=== PATIENT | female | born 1980 | race Caucasian/White ===

== ENCOUNTER 2017-11-07 10:16 | Emergency (ER) | payer SELFPAY ==
[~2017-11-07] VITALS: Ht 160 cm; Wt 66.7 kg
[~2017-11-07 10:16] MED LIST: AMOXICILLIN500 MG PO; AMOXIL500 MG PO; ANAPROX DS550 MG PO; AUGMENTIN 875875 MG PO; BENTYL10 MG PO; CEPHALEXIN500 M1 PO; CLEOCIN150 MG PO; COLACE100 MG; DARVOCET N 1001 TAB PO; DIFLUCAN150 MG PO; DULCOLAX5 MG PO; FLONASE0.05 MG/AC NS; HYDROCODONE BIT1 T11 PO; IBUPROFEN 30 M800 MG PO; MACROBID100 M1 PO; MONISTAT 72% VG; MOTRIN600 MG; NKHM; PENICILLIN VK500 MG PO; PERCOCET 325 MG1 TA2; PHENERGAN25 M1 PO; PRILOSEC20 MG PO; PROCARDIA10 MG PO; ROBITUSSIN AC 110 ML PO; SUDAFED60 MG PO; VICO75300 PO; VICODIN 5/500 505 MG PO; ZANTAC150 MG PO; ZOFRAN ODT4 MG SL; ZYRTEC10 MG PO; [UNRECOGNIZED DRUG - OTHER] PO
[2017-11-07 11:38] LABS: BILIRUBIN NEGATIVE (NEGATIVE); BLOOD NEGATIVE (NEGATIVE); CLARITY CLOUDY (CLEAR); COLOR YELLOW (YELLOW); GLUCOSE NEGATIVE (NEGATIVE); KETONE NEGATIVE (NEGATIVE); LEUKO ESTERASE TRACE (NEGATIVE); NITRITE POSITIVE (NEGATIVE); SPECIFIC GRAVITY 1.015 (1.005-1.030); UROBILINOGEN 0.2 E.U./dl (0.2-1.0)
[2017-11-07 11:45] LABS: BACTERIA 4+; WBC 41-50 wbc/hpf (0-5)
[2017-11-07 12:15] VITALS: BP 110/72
[2017-11-07] MEDS ORDERED: MACROBID100 M1 PO (12:33)
[2017-11-07] MEDS ORDERED: PYRIDIUM100 MG PO (12:33)
[2017-11-07] MEDS ORDERED: DOXYCYCLINE100 M3 PO (12:33)
== END 2017-11-07 12:39 | disposition home or self-care (01) ==
LOC: ED 10:16
PROVIDERS: Nurse Practitioner
DX: N39.0 Urinary tract infection, site not specified (principal); J32.9 Chronic sinusitis, unspecified; Z90.49 Acquired absence of other specified parts of digestive tract; Z98.890 Other specified postprocedural states; Z88.1 Allergy status to other antibiotic agents

== ENCOUNTER → 2019-11-26 | Outpatient (CLI) | payer BC, OTHER ==
[~2019-11-26] MED LIST changes: +DOXYCYCLINE100 M3 PO; +PYRIDIUM100 MG PO
== END | disposition home or self-care (01) ==
LOC: US 10-22 13:30
DX: R10.2 Pelvic and perineal pain (principal)

== ENCOUNTER → 2020-12-16 | Outpatient (CLI) | payer OTHER ==
[~2020-12-16] MED LIST changes: +AMOXICILLIN500 M3 PO; +ANTIBIOTIC28.4 GM T
== END | disposition home or self-care (01) ==
LOC: ORTHO 00:24
PROVIDERS: ATTEND Orthopaedic Surgery
DX: M25.532 Pain in left wrist (principal)

== ENCOUNTER 2021-01-29 17:29 | Emergency (ER) | payer OTHER ==
[~2021-01-29] VITALS: Ht 160 cm; Wt 66.7 kg
[~2021-01-29 17:29] MED LIST changes: -AMOXICILLIN500 M3 PO; -ANTIBIOTIC28.4 GM T
[2021-01-29 17:33] VITALS: BP 122/56
[2021-01-29] MEDS ORDERED: ANTIBIOTIC28.4 GM T (18:39)
[2021-01-29] MEDS ORDERED: AMOXICILLIN500 M3 PO (18:39)
== END 2021-01-29 19:00 | disposition home or self-care (01) ==
LOC: ED 17:29
DX: S61.217A Laceration without foreign body of left little finger without damage to nail, initial encounter (principal); Z88.1 Allergy status to other antibiotic agents; Z79.2 Long term (current) use of antibiotics; Z79.899 Other long term (current) drug therapy; Z90.49 Acquired absence of other specified parts of digestive tract; W26.0XXA Contact with knife, initial encounter; Y93.89 Activity, other specified; Y92.512 Supermarket, store or market as the place of occurrence of the external cause; Y99.8 Other external cause status

== ENCOUNTER 2021-04-20 17:36 | Emergency (ER) | payer OTHER ==
[~2021-04-20] VITALS: Ht 160 cm; Wt 4.2 kg
[~2021-04-20 17:36] MED LIST changes: +AMOXICILLIN500 M3 PO; +ANTIBIOTIC28.4 GM T
[2021-04-20 17:45] VITALS: BP 127/75
[2021-04-20] MEDS ORDERED: MEDROL DOSEPAK4 MG PO (21:43)
== END 2021-04-20 22:27 | disposition home or self-care (01) ==
LOC: ED 17:36
DX: T63.461A Toxic effect of venom of wasps, accidental (unintentional), initial encounter (principal); Z91.030 Bee allergy status; Z79.899 Other long term (current) drug therapy; Z88.8 Allergy status to other drugs, medicaments and biological substances; Y92.89 Other specified places as the place of occurrence of the external cause

== ENCOUNTER → 2021-08-09 | Outpatient (CLI) | payer OTHER ==
[~2021-08-09] MED LIST changes: +MEDROL DOSEPAK4 MG PO
== END | disposition home or self-care (01) ==
LOC: MAMMO 13:51
PROVIDERS: ATTEND Nurse Practitioner Women's Health
DX: Z12.31 Encounter for screening mammogram for malignant neoplasm of breast (principal); N64.89 Other specified disorders of breast

== ENCOUNTER → 2021-09-26 | Outpatient (CLI) | payer OTHER | END | disposition home or self-care (01) | LOC: RAD 15:06 | PROVIDERS: ATTEND Chiropractor | DX: M41.84 Other forms of scoliosis, thoracic region (principal); M50.30 Other cervical disc degeneration, unspecified cervical region; M54.50 Low back pain, unspecified; M48.02 Spinal stenosis, cervical region ==

== ENCOUNTER → 2021-11-15 | Outpatient (CLI) | payer OTHER | END | disposition home or self-care (01) | LOC: US 12:33 | PROVIDERS: ATTEND Physician Assistant | DX: N28.89 Other specified disorders of kidney and ureter (principal); R10.9 Unspecified abdominal pain; R11.0 Nausea; Z90.49 Acquired absence of other specified parts of digestive tract ==

== ENCOUNTER → 2021-11-28 | Outpatient (CLI) | payer OTHER | END | disposition home or self-care (01) | LOC: CT 10:31 | PROVIDERS: ATTEND Physician Assistant | DX: N20.0 Calculus of kidney (principal); N83.201 Unspecified ovarian cyst, right side ==

== ENCOUNTER → 2021-12-01 | Outpatient (CLI) | payer OTHER | END | disposition home or self-care (01) | LOC: US 14:42 | PROVIDERS: ATTEND Nurse Practitioner Women's Health | DX: N92.6 Irregular menstruation, unspecified (principal); N83.201 Unspecified ovarian cyst, right side ==

== ENCOUNTER → 2022-01-14 | Outpatient (CLI) | payer OTHER | END | disposition home or self-care (01) | LOC: RAD 12:58 | PROVIDERS: ATTEND Nurse Practitioner Primary Care | DX: N20.0 Calculus of kidney (principal) ==

== ENCOUNTER → 2022-02-19 | Outpatient (CLI) | payer OTHER | END | disposition home or self-care (01) | LOC: CT 07:59 | PROVIDERS: ATTEND Urology | DX: K57.30 Diverticulosis of large intestine without perforation or abscess without bleeding (principal); N20.0 Calculus of kidney ==

== ENCOUNTER 2022-07-01 13:57 | Emergency (ER) | payer OTHER ==
[~2022-07-01] VITALS: Ht 160 cm; Wt 65.8 kg
[2022-07-01 14:43] VITALS: BP 125/73
[2022-07-01] MEDS ORDERED: NAPROXEN250 MG PO (14:51)
[2022-07-01] MEDS ORDERED: TYLENOL325 M1 PO (14:51)
== END 2022-07-01 15:44 | disposition home or self-care (01) ==
LOC: ED 13:57
DX: S99.912A Unspecified injury of left ankle, initial encounter (principal); M79.672 Pain in left foot; Z91.030 Bee allergy status; Z88.1 Allergy status to other antibiotic agents; Z79.899 Other long term (current) drug therapy; Z79.2 Long term (current) use of antibiotics; Z90.49 Acquired absence of other specified parts of digestive tract; W01.0XXA Fall on same level from slipping, tripping and stumbling without subsequent striking against object, initial encounter; Y93.89 Activity, other specified; Y92.89 Other specified places as the place of occurrence of the external cause; Y99.8 Other external cause status

== ENCOUNTER → 2023-05-22 | Outpatient (CLI) | payer OTHER ==
[~2023-05-22] MED LIST changes: +ACYCLOVIR15 GM T; +BENZONATATE100 M1 PO; +DOXYCYCLINE HY100 M3 PO; +MYRBETRIQ25 M1 PO; +NAPROXEN250 MG PO; +ONDANSETRON HYDR4 M1 PO; +TYLENOL325 M1 PO; +VITAMIN D350 MC2 PO
== END | disposition home or self-care (01) ==
LOC: RAD 17:58
PROVIDERS: ATTEND Nurse Practitioner Family
DX: N20.0 Calculus of kidney (principal)

== ENCOUNTER → 2023-07-27 | Outpatient (CLI) | payer OTHER ==
[2023-07-27 08:40] LABS: HEMATOCRIT 39.3 % (37.0-47.0); MEAN CELL VOLUME 87.1 fl (81.0-99.0); MEAN CORPUSCULAR HGB 30.8 pg (27.0-31.0); MEAN CORPUSCULAR HGB CONC 35.4 g/dl (33.0-37.0); MEAN PLATELET VOLUME 9.6 fl (9.6-12.3); RED BLOOD COUNT 4.51 10*6/uL (4.10-5.10); RED CELL DISTRI WIDTH 11.9 % (0-14.5); WHITE BLOOD COUNT 6.5 10*3/uL (4.8-10.8)
[2023-07-27 09:19] LABS: ALKALINE PHOSPHATASE 60 U/L (46-116); CHLORIDE 112 mmol/L (98-107); CHOLESTEROL 171 mg/dL (<200); LDL CHOLESTEROL 98 mg/dL (9-159); POTASSIUM 4.1 mmol/L (3.4-5.1); SGPT/ALT 17 U/L (10-49); TOTAL PROTEIN 6.7 gm/dL (6.0-8.0); TRIGLYCERIDES 175 mg/dl (<150)
[2023-07-27 09:20] LABS: VITAMIN D, 25-HYDROXY 14.7 ng/mL (30-100)
[2023-07-27 09:23] LABS: BUN < 5 mg/dl (9-23)
== END | disposition home or self-care (01) ==
LOC: LAB 08:11
PROVIDERS: ATTEND Physician Assistant
DX: Z00.00 Encounter for general adult medical examination without abnormal findings (principal); R23.2 Flushing

== ENCOUNTER → 2023-10-12 | Outpatient (CLI) | payer OTHER | END | disposition home or self-care (01) | LOC: CT 09:48 | PROVIDERS: ATTEND Urology | DX: N20.0 Calculus of kidney (principal); K42.9 Umbilical hernia without obstruction or gangrene; K57.30 Diverticulosis of large intestine without perforation or abscess without bleeding ==

== ENCOUNTER → 2023-12-03 | Outpatient (CLI) | payer OTHER | END | disposition home or self-care (01) | LOC: MAMMO 11-12 01:08 | PROVIDERS: ATTEND Physician Assistant | DX: Z12.31 Encounter for screening mammogram for malignant neoplasm of breast (principal); N63.23 Unspecified lump in the left breast, lower outer quadrant ==

== ENCOUNTER → 2023-12-24 | Outpatient (CLI) | payer OTHER | END | disposition home or self-care (01) | LOC: MAMMO 12-12 13:30 → US 12-12 14:00 → MAMMO 13:07 | PROVIDERS: ATTEND Nurse Practitioner Women's Health | DX: N60.02 Solitary cyst of left breast (principal); N63.0 Unspecified lump in unspecified breast ==

== ENCOUNTER → 2024-01-11 | Outpatient (CLI) | payer OTHER ==
[~2024-01-11] MED LIST changes: +IOHEXOL 300 MG/ML 100 ML VIAL IV ONE
== END | disposition home or self-care (01) ==
LOC: CT 02:30
PROVIDERS: ATTEND Urology
DX: N20.0 Calculus of kidney (principal); K57.30 Diverticulosis of large intestine without perforation or abscess without bleeding; K42.9 Umbilical hernia without obstruction or gangrene; R31.0 Gross hematuria

== ENCOUNTER → 2024-08-07 | Outpatient (CLI) | payer BC ==
[~2024-08-07] MED LIST changes: -IOHEXOL 300 MG/ML 100 ML VIAL IV ONE
== END | disposition home or self-care (01) ==
LOC: RAD 10:34
PROVIDERS: ATTEND Family Medicine
DX: R06.02 Shortness of breath (principal); R68.89 Other general symptoms and signs; R05.9 Cough, unspecified; R11.0 Nausea

== ENCOUNTER → 2025-04-10 | Outpatient (CLI) | payer BC ==
[2025-04-10 09:43] LABS: BASO % 0.3 % (0.0-1.0); EOS % 0.2 % (1.0-4.0); HEMATOCRIT 38.7 % (37.0-47.0); MEAN CELL VOLUME 86.4 fl (81.0-99.0); MEAN CORPUSCULAR HGB 29.9 pg (27.0-31.0); MEAN CORPUSCULAR HGB CONC 34.6 g/dl (33.0-37.0); MEAN PLATELET VOLUME 9.1 fl (9.6-12.3); MONO # 0.9 10*3/uL (0.1-1.0); MONO % 7.8 % (3.0-9.0); NEUT # 9.2 10*3/uL (2.3-7.9); NEUT % 78.2 % (47.0-73.0); PLATELET COUNT AUTOMATED 293 10*3/uL (130-400); RED BLOOD COUNT 4.48 10*6/uL (4.10-5.10); RED CELL DISTRI WIDTH 11.9 % (0-14.5); WHITE BLOOD COUNT 11.8 10*3/uL (4.8-10.8)
[2025-04-10 10:19] LABS: ALKALINE PHOSPHATASE 56 U/L (46-116); BUN 7 mg/dl (9-23); CHLORIDE 105 mmol/L (98-107); CHOLESTEROL 174 mg/dL (<200); LDL CHOLESTEROL 113 mg/dL (9-159); POTASSIUM 3.8 mmol/L (3.4-5.1); SGPT/ALT 14 U/L (5-49); TOTAL PROTEIN 7.2 gm/dL (6.0-8.0); TRIGLYCERIDES 108 mg/dl (<150)
[2025-04-10 10:42] LABS: VITAMIN D, 25-HYDROXY 36.4 ng/mL (30-100)
[2025-04-12 13:07] LABS: CCP ANTIBODIES IGG/IGA 9 units (0-19)
[2025-04-12 16:07] LABS: A/G RATIO 1.5 (0.7-1.7); ALBUMIN 4.1 g/dL (2.9-4.4); ALPHA-1-GLOBULIN 0.2 g/dL (0.0-0.4); ALPHA-2-GLOBULIN 0.6 g/dL (0.4-1.0); GAMMA GLOBULIN 0.9 g/dL (0.4-1.8); GLOBULIN, TOTAL 2.8 g/dL (2.2-3.9)
== END | disposition home or self-care (01) ==
LOC: LAB 09:22
PROVIDERS: Physician Assistant; ATTEND Internal Medicine Rheumatology
DX: M54.9 Dorsalgia, unspecified (principal); G89.29 Other chronic pain; M25.50 Pain in unspecified joint

== ENCOUNTER → 2025-04-15 | Outpatient (CLI) | payer BC | END | disposition home or self-care (01) | LOC: CARD 14:49 | PROVIDERS: ATTEND Physician Assistant | DX: R07.9 Chest pain, unspecified (principal); R06.09 Other forms of dyspnea; R53.83 Other fatigue ==

== ENCOUNTER → 2025-04-23 | Outpatient (CLI) | payer BC | END | disposition home or self-care (01) | LOC: CARD 04-21 11:00 | PROVIDERS: ATTEND Physician Assistant | DX: R06.09 Other forms of dyspnea (principal); R07.9 Chest pain, unspecified; R53.83 Other fatigue ==

== ENCOUNTER 2025-09-07 07:52 | Emergency (ER) | payer BC ==
[~2025-09-07] VITALS: Ht 160 cm; Wt 71.2 kg
[2025-09-07 08:01] VITALS: BP 138/81
[2025-09-07] MEDS ORDERED: PREDNISONE20 M1 PO (08:37)
== END 2025-09-07 08:42 | disposition home or self-care (01) ==
LOC: ED 07:52
DX: T78.40XA Allergy, unspecified, initial encounter (principal); G43.909 Migraine, unspecified, not intractable, without status migrainosus; Z87.891 Personal history of nicotine dependence; Z88.1 Allergy status to other antibiotic agents; Z88.8 Allergy status to other drugs, medicaments and biological substances; Z90.49 Acquired absence of other specified parts of digestive tract; Z91.030 Bee allergy status; X58.XXXA Exposure to other specified factors, initial encounter

== ENCOUNTER → 2025-09-27 | Outpatient (CLI) | payer BC ==
[~2025-09-27] MED LIST changes: +PREDNISONE20 M1 PO
== END | disposition home or self-care (01) ==
LOC: RAD 17:02
PROVIDERS: ATTEND Physician Assistant
DX: M79.642 Pain in left hand (principal)